=== PATIENT | female | born 1975 | race American Indian/Alaskan Native ===

== ENCOUNTER 2020-12-05 12:58 | Emergency (ER) | payer OTHER ==
--- NOTE | 2020-12-05 14:06 | Event Note ---
ED Screening Note ED Screening Note: states she went to [facility] for annual check up and was advised to be seen in the ED no hx of HTN in the past states she had some increased stress from work has never been on HTN medication no CP or SOB no vision changes no numbness or weakness mild headache no allergies to meds LNMP: 11/10/2020 This initial assessment/diagnostic orders/clinical plan/treatment(s) is/are subject to change based on patients health status, clinical progression and re- assessment by fellow clinical providers in the ED. Further treatment and workup at subsequent clinical providers discretion. Patient/guardian urged not to elope from the ED as their condition may be serious if not clinically assessed and managed. Initial orders include: labs, EKG, urine
[2020-12-05 14:32] LABS: Basophils % (Auto) 0.5 % (0.0-1.8); Eosinophils # (Auto) 0.3 K/mm3 (0.0-0.4); Eosinophils % (Auto) 4.6 % (0.0-4.3); Hematocrit 38.6 % (30.3-42.9); Hemoglobin 13.4 gm/dl (10.1-14.3); Lymphocytes # (Auto) 2.9 K/mm3 (1.2-5.4); Lymphocytes % (Auto) 43.6 % (13.4-35.0); Mean Corpuscular HGB Conc 35 % (30-34); Mean Corpuscular Volume 96 fl (79-97); Monocytes # (Auto) 0.6 K/mm3 (0.0-0.8); Monocytes % (Auto) 9.3 % (0.0-7.3); Platelet Count 257 K/mm3 (140-440); Red Blood Count 4.04 M/mm3 (3.65-5.03); Red Cell Distribution Width 13.6 % (13.2-15.2)
[2020-12-05 14:48] LABS: Alanine Aminotransferase 14 units/L (7-56); Albumin 4.4 g/dL (3.9-5); BUN/Creatinine Ratio 12; Blood Urea Nitrogen 12 mg/dL (7-17); Calcium 10.6 mg/dL (8.4-10.2); Hemolysis Index 25
--- NOTE | 2020-12-05 19:41 | Emergency Department Report ---
ED General Adult HPI - General Chief complaint: High BP Stated complaint: HYPERTENSIVE PUI?: No Time Seen by Provider: 12/05/20 19:45 Source: patient Mode of arrival: Ambulatory Limitations: No Limitations - History of Present Illness Initial comments: Patient is a 45-year-old female who presents emergency room for high blood pr essure. Patient denies headache. Patient denies blurry vision. Patient states she has had high blood pressure in the past but has never been placed on medications. Patient states she was at her [facility] doctor having her annual exam and they noted the blood pressure to be high and sent to the emergency room to be evaluated. Patient states she is not eating a low-salt diet. Patient denies chest pain. Patient denies shortness of breath. Patient denies fever and chills. Patient denies leg swelling. Patient denies recent travel. Patient denies recent international travel. Patient denies exposure to the novel coronavirus. Patient denies sick contacts. Patient denies fever and chills. Patient denies cough. Patient denies diarrhea. Patient denies coming in contact with anybody with symptoms of the novel coronavirus. -: Sudden - Related Data Previous Rx's Medication Instructions Recorded Last Taken Type Losartan/Hydrochlorothiazide 1 each PO DAILY 30 Days #30 tablet 12/05/20 Unknown Rx [Losartan-Hctz 50-12.5 mg Tab] Allergies Allergy/AdvReac Type Severity Reaction Status Date / Time No Known Allergies Allergy Unverified 12/05/20 13:21 ED Review of Systems ROS: Stated complaint: HYPERTENSIVE Other details as noted in HPI Constitutional: denies: chills, fever Eyes: denies: eye pain, eye discharge, vision change ENT: denies: ear pain, throat pain Respiratory: denies: cough, shortness of breath, wheezing Cardiovascular: denies: chest pain, palpitations Endocrine: no symptoms reported Gastrointestinal: denies: abdominal pain, nausea, diarrhea Genitourinary: denies: urgency, dysuria, discharge Musculoskeletal: denies: back pain, joint swelling, arthralgia Skin: denies: rash, lesions Neurological: denies: headache, weakness, paresthesias Psychiatric: denies: anxiety, depression Hematological/Lymphatic: denies: easy bleeding, easy bruising ED Past Medical Hx - Past Medical History Previous Medical History?: Yes Hx Hypertension: Yes - Surgical History Past Surgical History?: No - Family History Family history: no significant - Social History Smoking Status: Current Every Day Smoker Substance Use Type: Alcohol, Marijuana - Medications Home Medications: Home Medications Medication Instructions Recorded Confirmed Last Taken Type Losartan/Hydrochlorothiazide 1 each PO DAILY 30 Days #30 tablet 12/05/20 Unknown Rx [Losartan-Hctz 50-12.5 mg Tab] ED Physical Exam - General Limitations: No Limitations General appearance: alert, in no apparent distress - Head Head exam: Present: atraumatic, normocephalic - Eye Eye exam: Present: normal appearance, PERRL Pupils: Present: normal accommodation - ENT ENT exam: Present: mucous membranes moist - Neck Neck exam: Present: normal inspection - Respiratory Respiratory exam: Present: normal lung sounds bilaterally. Absent: respiratory distress, wheezes, rales, chest wall tenderness - Cardiovascular Cardiovascular Exam: Present: regular rate, normal rhythm. Absent: systolic murmur, diastolic murmur, rubs, gallop - GI/Abdominal GI/Abdominal exam: Present: soft, normal bowel sounds. Absent: distended, tenderness, guarding - Extremities Exam Extremities exam: Present: normal inspection - Back Exam Back exam: Present: normal inspection - Neurological Exam Neurological exam: Present: alert, oriented X3, CN II-XII intact, normal gait - Psychiatric Psychiatric exam: Present: normal affect, normal mood - Skin Skin exam: Present: warm, dry, intact, normal color. Absent: rash ED Course Vital Signs 12/05/20 12/05/20 12/05/20 13:23 18:48 19:36 Temperature 98.6 F Pulse Rate 66 87 105 H Respiratory 18 18 18 Rate Blood Pressure 231/112 Blood Pressure 225/123 213/132 [Right] O2 Sat by Pulse 100 100 Oximetry 12/05/20 12/05/20 20:28 21:00 Temperature Pulse Rate 65 65 Respiratory 18 18 Rate Blood Pressure Blood Pressure 193/108 171/93 [Right] O2 Sat by Pulse 98 100 Oximetry - Reevaluation(s) Reevaluation #1: Patient given clonidine 0.2 mg. Patient blood pressure is improved. Patient dates he is feeling good. Patient states he is ready to go. I discussed all results and clinical findings with patient. I discussed plan of care with patient. Patient agrees with plan of care. Patient is stable for discharge. Patient will be discharged home. Patient given discharge instructions. Patient voiced understanding of discharge instructions. 12/05/20 21:33 ED Medical Decision Making - Lab Data Result diagrams: 12/05/20 14:19 12/05/20 14:19 - EKG Data -: EKG Interpreted by Me EKG shows normal: sinus rhythm, axis, intervals, QRS complexes, ST-T waves Rate: bradycardia - EKG Data Interpretation: [facility] - Medical Decision Making Patient is a 45-year-old female that presents emergency room for elevated blood pressure. Patient was at her [employer] [facility] office and was sent here for evaluation of her elevated blood pressure was severely elevated at their office. Patient s tates that her blood pressure there was 180/110. Patient's blood pressure was greater than 200 systolic. Patient given 0.2 mg of clonidine. Patient's blood pressure responded well. Patient had labs done which were essentially unremarkable. Patient had normal kidney function. Patient brought was negative x1. Patient never complained of any symptoms of high blood pressure. Patient denied headache. Patient denies blurry vision. Patient denies chest pain shortness of breath. Patient will be discharged home with a prescription for losartan 100 mg. Patient given discharge instructions. Patient voiced understanding of discharge instructions. Patient stable for discharge. Critical care time documented due to the multiple reassessments, prolonged time at the bedside, interpretation of diagnostics and labs. - Differential Diagnosis Elevated blood pressure, uncontrolled hypertension, untreated hypertension, Critical Care Time: Yes Critical care time in (mins) excluding proc time.: 35 Critical care attestation.: If time is entered above; I have spent that time in minutes in the direct care of this critically ill patient, excluding procedure time. Critical Care Time: 35 minutes ED Disposition Clinical Impression: Hypertensive emergency Hypertension Qualifiers: Hypertension type: essential hypertension Qualified Code(s): I10 - Essential (primary) hypertension Disposition: DC-01 TO HOME OR SELFCARE Is pt being admited?: No Does the pt Need Aspirin: No Condition: Stable Instructions: Hypertension, Adult, [id number], Preventing Hypertension, Hypertension (ED) Additional Instructions: Patient to follow-up with primary care in 2 to 3 days. Patient to follow-up with [facility] [employer] [facility] in 2 to 3 days. Patient to rest. Patient to increase water. Patient eat a low-salt diet. Patient eat a heart healthy diet. Patient to monitor blood pressure at home. Patient to keep a blood pressure log. Patient to take blood pressure log to all follow-up appointments. Patient to take Tylenol or ibuprofen as needed for pain. Patient to take meds as directed. Patient to return to the ER if condition worsens, changes or new symptoms arise. Prescriptions: Losartan/Hydrochlorothiazide [Losartan-Hctz 50-12.5 mg Tab] 1 each PO DAILY 30 Days #30 tablet Referrals: PRIMARY CARE, [Primary Care Provider] - 2-3 Days Time of Disposition: 21:37
[2020-12-05] MEDS ORDERED: cloNIDine 0.2 MG TAB PO ONE (20:04)
[2020-12-05 20:19] LABS: Bacteria,Urine 2+ /HPF (Negative); Hyaline Casts,Urine 3 /LPF; Mucus,Urine FEW /HPF
[2020-12-05 20:21] LABS: Bilirubin,Urine NEG (Negative); Blood,Urine NEG (Negative); Color,Urine Amber (Yellow); Protein,Urine <15 mg/dL mg/dL (Negative)
[2020-12-05 20:23] LABS: HCG Qualitative,Urine Negative (Negative)
[2020-12-05 21:56] VITALS: BP 148/86
--- NOTE | 2020-12-12 11:08 | Electrocardiograph Report ---
[facility] Test Date: 2020-12-05 Test Time: 14:13:05 Pat Name: BLANCA AGUIRRE Department: Room: Gender: F [employer]: ANIYAH : 1975 Requested By: SANDRA LOUISE Order Number: [id number] Reading MD: Parisa Mon Measurements Intervals Parker Rate: 57 P: 43 [place]: 191 QRS: 27 QRSD: 91 T: -30 QT: 401 QTc: 392 Interpretive Statements Sinus bradycardia Consider left ventricular hypertrophy Nonspecific T abnormalities, inferior leads No previous ECG available for comparison Electronically Signed On 12-12-2020 11:08:18 EDT by Parisa Mon
== END 2020-12-05 21:56 | disposition home or self-care (01) ==
LOC: ED 12:58
DX: I10 Essential (primary) hypertension (principal); F17.200 Nicotine dependence, unspecified, uncomplicated; F12.10 Cannabis abuse, uncomplicated; Z79.899 Other long term (current) drug therapy
CPT/HCPCS: 36415; 80053; 81001; 81025; 84484; 85025; 87086; 93005